=== PATIENT | female | born 1990 | race Caucasian/White ===

== ENCOUNTER 2017-04-09 06:00 | Inpatient (IN) | payer MEDICAID, OTHER ==
[~2017-04-09] VITALS: Ht 162.6 cm; Wt 88.2 kg
[~2017-04-09 06:00] MED LIST: ACET325T33 PO
[2017-04-09] MEDS ORDERED: LACTATED RINGER'S 1,000 ML IV SCH (08:15)
[2017-04-09] MEDS ORDERED: LIDOCAINE 1% (MPF) 30 ML INJ INJ PRN (08:30)
[2017-04-09] MEDS ORDERED: CARBOPROST 250 MCG INJ IM PRN ×2 (08:30→13:00)
[2017-04-09] MEDS ORDERED: LACTATED RINGER'S 1,000 ML IV PRN (08:30)
[2017-04-09] MEDS ORDERED: IBUPROFEN 600 MG TAB PO PRN (08:30)
[2017-04-09] MEDS ORDERED: OXYTOCIN 30 UNITS/LR 500 ML IV PRN ×2 (08:30→13:00)
[2017-04-09] MEDS ORDERED: METHYLERGONOVINE 0.2 MG INJ IM PRN ×2 (08:30→13:00)
[2017-04-09] MEDS ORDERED: BUTORPHANOL 2 MG INJ IV PRN (08:30)
[2017-04-09] MEDS ORDERED: OXYTOCIN 30 UNITS/LR 500 ML IV SCH ×3 (08:30→09:00)
[2017-04-09] MEDS ORDERED: MISOPROSTOL 200 MCG TAB PR PRN ×2 (08:30→13:00)
[2017-04-09 08:56] VITALS: BP 118/59; PULSE 66; RESP 18
[2017-04-09] MEDS ORDERED: PRENAT PO (09:00)
[2017-04-09] MEDS ORDERED: FERR236T PO (09:00)
--- NOTE | 2017-04-09 09:57 | HP ---
Date/Time of Note Date/Time of Note DATE: 04/09/17 TIME: 09:56 OB - History Hx of Present Chief Complaint: WITH UTERINE CTXS Care: Good Care Ultrasounds: Normal mid trimester US Obstetrical Complications: None Medical Complications: None Past Family/Social History * Past Medical, Surgical, Family and Obstetric Histories reviewed from chart. OB Admission Exam Vital Signs Vital Signs Vital Signs Date Time Temp Pulse Resp B/P Pulse Ox O2 Delivery O2 Flow Rate FiO2 04/09/17 08:56 98.3 66 18 118/59 98 Room Air Physical Exam HEENT: WNL Heart: Rhythm Normal Lungs: Clear, Equal Abdomen: WNL Extremities: Normal Reflexes: Normal Cervical Dilatation: 5cm Effacement: 50% Station: 0 Membranes: Ruptured Amniotic Fluid: Clear Heart Rate: 130's Accelerations: Accelerations Present Decelerations: No Decelerations Varibility: Moderate Contractions on Admission: 6-10 Minutes Apart OB Assessment/Plan Reason for admission: active labor Plan: Expectant Management ALMA VALDIVIA MD Apr 09, 2017 09:57
[2017-04-09 11:11] LABS: BASOPHILS % 0.3 % (0.0-2.0); EOSINOPHILS # 0.1 10^3/ul (0.0-0.5); EOSINOPHILS % 0.7 % (0.0-7.0); HEMATOCRIT 36.3 % (37.0-47.0); HEMOGLOBIN 12.2 g/dl (12.0-16.0); LYMPHOCYTES # 2.3 10^3/ul (0.8-2.9); LYMPHOCYTES % 23.5 % (15.0-51.0); MEAN CORPUSCULAR HEMOGLOBIN 26.9 pg (29.0-33.0); MEAN CORPUSCULAR HGB CONC 33.6 g/dl (32.0-37.0); MEAN CORPUSCULAR VOLUME 80.1 fl (82.0-101.0); MEAN PLATELET VOLUME 11.2 fl (7.4-10.4); MONOCYTE # 0.6 10^3/ul (0.3-0.9); MONOCYTES % 5.8 % (0.0-11.0); NEUTROPHILS % 68.1 % (39.0-77.0); PLATELET COUNT 264 10^3/UL (140-415); RED BLOOD COUNT 4.53 10^6/ul (4.20-5.40); RED CELL DISTRIBUTION WIDTH 16.4 % (11.5-14.5); WHITE BLOOD COUNT 9.9 10^3/ul (4.8-10.8)
--- NOTE | 2017-04-09 11:14 | LDN ---
Date/Time of Note Date/Time of Note DATE: 04/09/17 TIME: 11:14 Delivery Summary term preg, NSD Placenta Delivered: Spontaneously Meconium: none Anesthesia type: None Estimated blood loss: 300 Sponge & Needle done & correct: Yes All needle counts correct: Yes Problems: ALMA VALDIVIA MD Apr 09, 2017 11:14
[2017-04-09 11:25] LABS: INR 0.91; PROTIME 12.3 Sec (12.2-14.2)
[2017-04-09 11:26] LABS: PARTIAL THROMBOPLASTIN TIME 29.4 Sec (25.0-35.0)
[2017-04-09] MEDS: LACTATED RINGER'S 1,000 ML IV* SCH ×2 (12:50→19:54)
[2017-04-09] MEDS ORDERED: ZOLPIDEM 5 MG TAB PO PRN (13:00)
[2017-04-09] MEDS ORDERED: HYDROCODONE/APAP (5/325) TAB PO PRN (13:00)
[2017-04-09] MEDS ORDERED: MAGNESIUM HYDROXIDE 30ML CUP PO PRN (13:00)
[2017-04-09] MEDS ORDERED: SENNA/DOCUSATE NA (8.6MG/50MG) TAB PO PRN (13:00)
[2017-04-09] MEDS ORDERED: ACETAMINOPHEN 325 MG TAB PO PRN (13:00)
[2017-04-09] MEDS ORDERED: WITCH HAZEL/GLYCERIN PAD PR PRN (13:00)
[2017-04-09] MEDS ORDERED: LANOLIN 7 GM TUBE TOP PRN (13:00)
[2017-04-09] MEDS ORDERED: BENZOCAINE 20% 56 ML SPRAY TOP PRN (13:00)
[2017-04-09] MEDS ORDERED: DIPHENHYDRAMINE 25 MG CAP PO PRN (13:00)
[2017-04-09 13:30] VITALS: BP 118/56; PULSE 62; RESP 18
[2017-04-09 14:00] VITALS: BP 124/58; PULSE 66; RESP 20
[2017-04-09] MEDS: OXYTOCIN 30 UNITS/LR 500 ML IV SCH ×2 (16:45→16:50)
[2017-04-09 16:50] VITALS: BP 112/51; PULSE 73; RESP 18
[2017-04-09] MEDS: IBUPROFEN 800 MG TAB PO SCH ×2 (18:18→23:49)
[2017-04-09 19:57] VITALS: BP 118/56; PULSE 87; RESP 20
[2017-04-10] VITALS: BP 116/60; PULSE 86; RESP 20
[2017-04-10 04:00] VITALS: BP 118/58; PULSE 80; RESP 20
[2017-04-10] MEDS: LACTATED RINGER'S 1,000 ML IV* SCH ×2 (04:46→12:50)
[2017-04-10] MEDS: IBUPROFEN 800 MG TAB PO SCH ×3 (05:43→17:31)
[2017-04-10 07:50] LABS: BASOPHIL # 0.1 10^3/ul (0.0-0.1); BASOPHILS % 0.5 % (0.0-2.0); EOSINOPHILS # 0.1 10^3/ul (0.0-0.5); EOSINOPHILS % 0.8 % (0.0-7.0); HEMOGLOBIN 10.5 g/dl (12.0-16.0); LYMPHOCYTES # 3.2 10^3/ul (0.8-2.9); LYMPHOCYTES % 24.9 % (15.0-51.0); MEAN CORPUSCULAR HEMOGLOBIN 25.8 pg (29.0-33.0); MEAN CORPUSCULAR HGB CONC 31.8 g/dl (32.0-37.0); MEAN CORPUSCULAR VOLUME 81.1 fl (82.0-101.0); MEAN PLATELET VOLUME 10.8 fl (7.4-10.4); MONOCYTE # 0.8 10^3/ul (0.3-0.9); MONOCYTES % 6.5 % (0.0-11.0); NEUTROPHILS % 65.7 % (39.0-77.0); PLATELET COUNT 223 10^3/UL (140-415); RED BLOOD COUNT 4.07 10^6/ul (4.20-5.40); RED CELL DISTRIBUTION WIDTH 16.8 % (11.5-14.5); WHITE BLOOD COUNT 12.7 10^3/ul (4.8-10.8)
[2017-04-10 08:45] VITALS: BP 100/42; PULSE 67; RESP 17
[2017-04-10 12:31] LABS: RUBELLA ANTIBODY - IGG 1.68 index
[2017-04-10 16:00] VITALS: BP 114/55; PULSE 71; RESP 17
[2017-04-10 20:30] VITALS: BP 107/56; PULSE 67; RESP 18
[2017-04-11] MEDS: IBUPROFEN 800 MG TAB PO SCH ×3 (00:28→12:00)
[2017-04-11 04:15] VITALS: BP 110/59; PULSE 65; RESP 18
[2017-04-11 08:00] VITALS: BP 113/60; PULSE 56; RESP 18
[2017-04-11] MEDS ORDERED: MEASLES,MUMPS,RUBELLA VACCINE INJ SC* ONE (09:00)
[2017-04-11] MEDS ORDERED: VARICELLA VACCINE LIVE/PF 1,350 UNIT/0.5 ML ML SC* ONE (09:00)
[2017-04-11] MEDS ORDERED: DIPHTH/TET/ACEL PERTUSS (ADULT) 0.5 ML VIAL IM* ONE (09:00)
--- NOTE | 2017-04-11 12:21 | QN ---
Documentation Comment doing well vss abd soft d/c home ALMA VALDIVIA MD Apr 11, 2017 12:21
--- NOTE | 2017-04-11 12:22 | DS ---
Date/Time of Note Date/Time of Note DATE: 04/11/17 TIME: 12:21 Discharge Summary Admission/Discharge Info Admit Date/Time Apr 09, 2017 at 07:28 Discharge Date/Time Discharge Diagnosis term preg Patient Condition: Good Hospital Course unremarkable Home Meds Reported Medications Ferrous Gluconate (Iron) 236 Mg Tablet, 236 MG PO DAILY, TAB 04/09/17 Multivit/Min/Fol Ac/Iron/Pren* ( S*) 1 Tab Tab, 1 TAB PO DAILY, TAB 04/09/17 Primary Care Provider MD SHEA Monroe PAYMAN P MD Apr 11, 2017 12:22
== END 2017-04-11 17:39 | disposition home or self-care (01) | DRG 775 ==
LOC: L-D 07:28 → PP1 13:19
PROVIDERS: ADMIT Obstetrics & Gynecology; ATTEND Obstetrics & Gynecology
PROC: 3E033VJ Introduction of Other Hormone into Peripheral Vein, Percutaneous Approach (ICD-10-PCS; 2017-04-09)
PROC: 10E0XZZ Delivery of Products of Conception, External Approach (ICD-10-PCS; principal; 2017-04-09 06:00)
DX: O80 Encounter for full-term uncomplicated delivery (principal); Z37.0 Single live birth; Z3A.38 38 weeks gestation of pregnancy
CPT/HCPCS: 85025; 85610; 85730; 86592; 86762; 86900; 86901; 87340; 90715; 90716; J2590; J7120